=== PATIENT | male | born 1975 | race American Indian/Alaskan Native ===

== ENCOUNTER 2016-06-29 17:41 | Emergency (ER) | payer OTHER ==
[~2016-06-29] VITALS: Ht 170.2 cm; Wt 70.0 kg
[2016-06-29 17:44] VITALS: Ht 170.2 cm; Wt 70.0 kg
[2016-06-29] MEDS ORDERED: DIVA500T7 PO (18:07)
[2016-06-29] MEDS ORDERED: RISP3TAB25 PO (18:08)
[2016-06-29 18:24] LABS: BASOPHIL # 0.1 10^3/ul (0.0-0.1); EOSINOPHILS # 0.9 10^3/ul (0.0-0.5); EOSINOPHILS % 8.7 % (0.0-7.0); HEMATOCRIT 39.5 % (42.0-52.0); HEMOGLOBIN 13.3 g/dl (14.0-18.0); LYMPHOCYTES % 29.7 % (15.0-51.0); MEAN CORPUSCULAR HEMOGLOBIN 29.7 pg (29.0-33.0); MEAN CORPUSCULAR HGB CONC 33.7 g/dl (32.0-37.0); MEAN CORPUSCULAR VOLUME 88.2 fl (82.0-101.0); MEAN PLATELET VOLUME 7.5 fl (7.4-10.4); MONOCYTE # 0.8 10^3/ul (0.3-0.9); MONOCYTES % 8.3 % (0.0-11.0); NEUTROPHIL # 5.3 10^3/ul (1.6-7.5); NEUTROPHILS % 52.3 % (39.0-77.0); PLATELET COUNT 281 10^3/UL (140-440); RED BLOOD COUNT 4.48 10^6/ul (4.70-6.10); UNCORRECTED WBC 10.2 10^3/ul (4.8-10.8); WHITE BLOOD COUNT 10.2 10^3/ul (4.8-10.8)
[2016-06-29 18:26] LABS: CONDITION 1; LH ANALYZER COMMENTS 1
[2016-06-29 18:36] LABS: ALBUMIN 4.5 g/dl (3.3-4.9); CHLORIDE 103 mmol/L (97-110)
[2016-06-29 18:37] LABS: POTASSIUM 4.1 mmol/L (3.5-5.1); SODIUM 142 mmol/L (135-144)
[2016-06-29 18:39] LABS: ALANINE AMINOTRANSFERASE 23 IU/L (13-69); ALBUMIN/GLOBULIN RATIO 1.21; ALKALINE PHOSPHATASE 64 IU/L (42-121); ANION GAP 20 (8-16); ASPARTATE AMINO TRANSFERASE 37 IU/L (15-46); BILIRUBIN,INDIRECT 0.1 mg/dl (0-1.1); BILIRUBIN,TOTAL 0.1 mg/dl (0.2-1.3); BLOOD UREA NITROGEN 8 mg/dl (7-20); CARBON DIOXIDE 23 mmol/L (21-31); CREATININE 0.59 mg/dl (0.61-1.24); GLUCOSE 90 mg/dl (70-220); TOTAL PROTEIN 8.2 g/dl (6.1-8.1)
[2016-06-29 18:40] LABS: CALCIUM 9.5 mg/dl (8.4-10.2)
[2016-06-29 18:45] LABS: ACETAMINOPHEN < 10.0 ug/ml (10.0-30.0); SALICYLATE < 1.0 mg/dl (5.0-30.0)
[2016-06-29 18:55] LABS: ADD UMIC YES; URINE BILIRUBIN (Dip) NEGATIVE (NEGATIVE); URINE BLOOD (Dip) NEGATIVE (NEGATIVE); URINE COLOR LT. YELLOW (YELLOW); URINE GLUCOSE (Dip) NEGATIVE (NEGATIVE); URINE KETONES (Dip) NEGATIVE (NEGATIVE); URINE LEUKOCYTE ESTERASE (Dip) TRACE (NEGATIVE); URINE NITRITE (Dip) NEGATIVE (NEGATIVE); URINE TOTAL PROTEIN (Dip) NEGATIVE (NEGATIVE); URINE UROBILINOGEN (Dip) 0.2 E.U./dL (0.1-1.0)
[2016-06-29 19:18] LABS: CANNABINOIDS Positive (NEGATIVE)
[2016-06-29 19:25] LABS: SQUAMOUS EPITHELIAL CELL,UR OCCASIONAL; URINE RBCS NONE SEEN /HPF (0)
[2016-06-29 19:30] LABS: BARBITURATES Negative (NEGATIVE); BENZODIAZEPINES Negative (NEGATIVE); COCAINE Negative (NEGATIVE); OPIATES Negative (NEGATIVE)
--- NOTE | 2016-06-29 22:23 | ERA ---
ER Documentation Chief Complaint Date/Time DATE: 06/29/16 TIME: 22:20 Chief Complaint Hearing voices states has been drinking beer and doing speed HPI This 40-year-old male comes to the emergency room stating he is hearing voices. He admits to drinking beer and doing speed. Tells me that he has a psychiatric history but he cannot name any diagnosis. Voices are not telling him to hurt himself or anyone else but is distressed that he is hearing them. He denies any physical pain or any other symptoms currently. ROS All systems reviewed and are negative except as per history of present illness. Medications Home Meds Reported Medications Risperidone* (Risperdal*) 3 Mg Tablet, 3 MG PO BID, TAB 06/29/16 Divalproex Sodium* (Depakote*) 500 Mg Tablet.dr, 500 MG PO BID, #120 TAB 06/29/16 Allergies Allergies: Coded Allergies: Penicillins (Verified Allergy, Unknown, 06/29/16) PMhx/Soc Medical and Surgical Hx: pt denies Medical Hx, pt denies Surgical Hx History of Surgery: No Anesthesia Reaction: No Hx Neurological Disorder: No Hx Respiratory Disorders: No Hx Cardiac Disorders: No Hx Psychiatric Problems: No Hx Miscellaneous Medical Probl: No Hx Alcohol Use: No Hx Substance Use: No Hx Tobacco Use: No Smoking Status: Current every day smoker Physical Exam Vitals Vital Signs Date Time Temp Pulse Resp B/P Pulse Ox O2 Delivery O2 Flow Rate FiO2 06/29/16 20:32 98.0 100 18 117/80 100 Room Air 06/29/16 17:44 97.7 107 20 119/81 100 Physical Exam Const: [] No distress Head: Atraumatic Eyes: Normal Conjunctiva EOMI, PERRLA ENT: Normal External Ears, Nose and Mouth. Neck: Full range of motion..~ No meningismus. Resp: Clear to auscultation bilaterally Cardio: Regular rate and rhythm, no murmurs Abd: Soft, non tender, non distended. Normal bowel sounds Skin: No petechiae or rashes Back: No midline or flank tenderness Ext: No cyanosis, or edema Neur: Awake and alert and oriented 3, cranial nerves II through XII intact, no cerebellar deficits. Psych: Appears somewhat anxious Result Diagram: 06/29/16 17506/[id number]/[id number] Results 24 hrs Laboratory Tests Test 1/22/17 17:51 06/29/16 18:30 Acetaminophen Level < 10.0ug/ml Alanine Aminotransferase (ALT/SGPT) 23IU/L Albumin 4.5g/dl Albumin/Globulin Ratio 1.21 Alkaline Phosphatase 64IU/L Anion Gap 20 Aspartate Amino Transf (AST/SGOT) 37IU/L Basophils # 0.110^3/ul Basophils % 1.0% Blood Morphology Comment Blood Urea Nitrogen 8mg/dl Calcium Level 9.5mg/dl Carbon Dioxide Level 23mmol/L Chloride Level 103mmol/L Creatinine 0.59mg/dl Direct Bilirubin 0.00mg/dl Eosinophils # 0.910^3/ul Eosinophils % 8.7% Ethyl Alcohol Level 268.0mg/dl Globulin 3.70g/dl Glucose Level 90mg/dl Hematocrit 39.5% Hemoglobin 13.3g/dl Indirect Bilirubin 0.1mg/dl Lymphocytes # 3.010^3/ul Lymphocytes % 29.7% Mean Corpuscular Hemoglobin 29.7pg Mean Corpuscular Hemoglobin Concent 33.7g/dl Mean Corpuscular Volume 88.2fl Mean Platelet Volume 7.5fl Monocytes # 0.810^3/ul Monocytes % 8.3% Neutrophils # 5.310^3/ul Neutrophils % 52.3% Nucleated Red Blood Cells # 0.010^3/ul Nucleated Red Blood Cells % 0.0/100WBC Platelet Count 17952^3/UL Potassium Level 4.1mmol/L Red Blood Count 4.4810^6/ul Red Cell Distribution Width 24.0% Salicylates Level < 1.0mg/dl Sodium Level 142mmol/L Total Bilirubin 0.1mg/dl Total Protein 8.2g/dl White Blood Count 10.210^3/ul Urine Amphetamines Screen Negative Urine Barbiturates Negative Urine Benzodiazepines Screen Negative Urine Bilirubin NEGATIVE Urine Cannabinoids Positive Urine Clarity CLEAR Urine Cocaine Screen Negative Urine Color LT. YELLOW Urine Glucose NEGATIVE% Urine Hemoglobin NEGATIVE Urine Ketones NEGATIVE Urine Leukocyte Esterase TRACE Urine Microscopic RBC NONE SEEN/HPF Urine Microscopic WBC 0-2/HPF Urine Nitrite NEGATIVE Urine Opiates Screen Negative Urine Specific [place] <=1.005 Urine Squamous Epithelial Cells OCCASIONAL Urine Total Protein NEGATIVE Urine Urobilinogen 0.2 E.U./dL Urine pH 6.0 Procedures/MDM 40-year-old male with psychiatric history. Records indicate that his been on Depakote and Risperdal before. States that he has not taken them for some time. Urine drug screen is positive for cannabinoids but negative for methamphetamines which may mean that they have not entered the patient system yet to make the test positive. Patient is concerned about these voices and may benefit from psychiatric admission for medication adjustment. He is still awaiting [facility] psych evaluation however he is medically cleared meaning I see no medical problem that would preclude him from psychiatric admission. Departure Diagnosis: Primary Impression: Auditory hallucinations Additional Impression: Acute psychosis Condition: Stable MARIUSZ KRAUSE DO Jun 29, 2016 22:23
--- NOTE | 2016-06-30 01:43 | PSY ---
Date/Time of Note Date/Time of Note DATE: 06/30/16 TIME: 01:28 Psychiatric Subjective Eval Consent Pt consented to telemedicine: Yes Subjective Evaluation Patient location: emergency Chief Complaint: Hearing voices states has been drinking beer and doing speed Reason for consult: suicidal History of present illness patient is a 40 yo male with PPH Of schizophrenia and amphetamine abuse homeless who came to the ER due to feeling suicidal and hearing voices, he states that the voices have been telling him to kill himself and he feels suicidal " on and off ", he has been feeling paranoid, he has been feeling depressed, hopeless and helpless for the past few weeks due to homelessness, he has been feeling anxious and irritable. he is suffering from insomnia. He has been drinking alcohol and using methamphetamine. Past psychiatric history past suicidal attempt Hospitalization: yes Family History denies Medical history Problems Medical Problems: (1) Acute psychosis Status: Acute (2) Auditory hallucinations Status: Acute Allergies: Coded Allergies: Penicillins (Verified Allergy, Unknown, 06/29/16) Substance Abuse Substance abuse history: Yes Prior substance abuse treatmen: Yes Social History Marital status: single Level of education: hs DPA/Conservatorship: No Occupation/[employer]: unemployed Psychiatric Objective Eval Review of Systems: Review of Systems: Not Applicable Physical Examination: Physical Examination: Applicable Sleep: Insomnia Appetite: Decreased Energy: Decreased Interest: Decreased Mental Status Examination: Appearance: Groomed Psychomotor Activity: Normal Behavior: Cooperative Speech: Clear AFFECT: Depressed Mood: Depressed Though Process: Linear Thought Content: Delusions, Hallucinations Suicidal: Yes Homicidal: No On 72 hour hold: No Orientation: x2 Cognition: Alert Insight: Impared Judgement: Impared Attention Span: Intact Laboratory Results Laboratory Tests Test 06/29/16 17:51 06/29/16 18:30 Acetaminophen Level < 10.0ug/ml Alanine Aminotransferase (ALT/SGPT) 23IU/L Albumin 4.5g/dl Albumin/Globulin Ratio 1.21 Alkaline Phosphatase 64IU/L Anion Gap 20 Aspartate Amino Transf (AST/SGOT) 37IU/L Basophils # 0.110^3/ul Basophils % 1.0% Blood Morphology Comment Blood Urea Nitrogen 8mg/dl Calcium Level 9.5mg/dl Carbon Dioxide Level 23mmol/L Chloride Level 103mmol/L Creatinine 0.59mg/dl Direct Bilirubin 0.00mg/dl Eosinophils # 0.910^3/ul Eosinophils % 8.7% Ethyl Alcohol Level 268.0mg/dl Globulin 3.70g/dl Glucose Level 90mg/dl Hematocrit 39.5% Hemoglobin 13.3g/dl Indirect Bilirubin 0.1mg/dl Lymphocytes # 3.010^3/ul Lymphocytes % 29.7% Mean Corpuscular Hemoglobin 29.7pg Mean Corpuscular Hemoglobin Concent 33.7g/dl Mean Corpuscular Volume 88.2fl Mean Platelet Volume 7.5fl Monocytes # 0.810^3/ul Monocytes % 8.3% Neutrophils # 5.310^3/ul Neutrophils % 52.3% Nucleated Red Blood Cells # 0.010^3/ul Nucleated Red Blood Cells % 0.0/100WBC Platelet Count 75148^3/UL Potassium Level 4.1mmol/L Red Blood Count 4.4810^6/ul Red Cell Distribution Width 24.0% Salicylates Level < 1.0mg/dl Sodium Level 142mmol/L Total Bilirubin 0.1mg/dl Total Protein 8.2g/dl White Blood Count 10.210^3/ul Urine Amphetamines Screen Negative Urine Barbiturates Negative Urine Benzodiazepines Screen Negative Urine Bilirubin NEGATIVE Urine Cannabinoids Positive Urine Clarity CLEAR Urine Cocaine Screen Negative Urine Color LT. YELLOW Urine Glucose NEGATIVE% Urine Hemoglobin NEGATIVE Urine Ketones NEGATIVE Urine Leukocyte Esterase TRACE Urine Microscopic RBC NONE SEEN/HPF Urine Microscopic WBC 0-2/HPF Urine Nitrite NEGATIVE Urine Opiates Screen Negative Urine Specific [place] <=1.005 Urine Squamous Epithelial Cells OCCASIONAL Urine Total Protein NEGATIVE Urine Urobilinogen 0.2 E.U./dL Urine pH 6.0 Assessment and Plan Assessment/Diagnosis [place] I: schizoaffective do depressed type polysubstance abuse [place] II: deferred [place] III: as per record [place] IV: homeless [place] V: gaf 25 Recommendation/Plan Follow-up/Disposition Please admit patient on unvoluntary status due to Danger to self, In my opinion, patient currently MEETS criterion for inpatient care and CANNOT be safely treated at a lower level of care today as evidenced by the following risk factors: Current and Recent Suicidal Ideation Previous suicide attempt and severe self-destructive behavior Intense feelings of hopelessness and lack of future orientation. Significant recent DETERIORATION in function, behavior and thought processes Command hallucinations with violent content Substance ABUSE in conjunction with another psychiatric disorder Non-Compliance with Outpatient Treatment Patient has failed outpatient and requires further inpatient assessment 5150 Recommendation: ESTEPHANIA Steven MD Jun 30, 2016 01:38
[2016-06-30 08:59] VITALS: BP 121/61; PULSE 96; RESP 18; TEMP 98.2
== END 2016-06-30 09:20 ==
LOC: E/R 17:41
DX: R44.0 Auditory hallucinations (principal); F17.210 Nicotine dependence, cigarettes, uncomplicated
CPT/HCPCS: 80053; 80306; 80307; 81001; 81003; 85025